=== PATIENT | female | born 1995 | race Caucasian/White ===

== ENCOUNTER 2016-11-05 21:26 | Emergency (ER) | payer BC ==
[2016-11-05 21:43] VITALS: BP 121/65
--- NOTE | 2016-11-05 21:53 | UC ---
Complaint Female HPI - HPI Summary HPI Summary: The patient comes in today for: 1. Dysuria: Onset: Since this morning. Palliative/provocative: Urinating makes it worse. Pyridium makes it better. Quality: Dysuria. Region: . Severity:03/04 Time: Constant. Associated symptoms: Previous treatment: She took PYridium which helped. Hydrocodone did not help. She will get UTI's about 2-3 times a year. Fever: No temperature taken. Hematuria: Present. LMP: Mirena IUD. Back pain: None. Last UTI: last summer. Recent antibiotics: Suspected penicillin in two months ago for strep throat. * - History Of Current Complaint Chief Complaint: UCGU Stated Complaint: POSS UTI Time Seen by Provider: 11/05/16 21:34 Hx Obtained From: Patient Hx Last Menstrual Period: 04/2017 , Mirena - Allergies/Home Medications Allergies/Adverse Reactions: Allergies Allergy/AdvReac Type Severity Reaction Status Date / Time No Known Allergies Allergy Verified 12/28/15 17:10 Home Medications: Home Medications Levonorgestrel (Iud) [Mirena IUD] 11/05/16 [History] Pyrium 11/05/16 [History] PMH/Surg Hx/FS Hx/Imm Hx Previously Healthy: Yes Endocrine History Of: Denies: Diabetes, Thyroid Disease, Hyperthyroidism, Hypothyroidism, Dyslipidemia Cardiovascular History Of: Denies: Cardiac Disorders, Hypertension, Pacemaker/ICD, Myocardial Infarction , Congestive Heart Failure, Atrial Fibrillation, Deep Vein Thrombosis, Bleeding Disorders Respiratory History Of: Denies: COPD, Asthma, Bronchitis, Pneumonia, Pulmonary Embolism GI/ History Of: Denies: Gastroesophageal Reflux, Ulcer, Gastrointestinal Bleed, Gall Bladder Disease, Kidney Stones, Diverticulitis, Renal Disease, Urosepsis Neurological History Of: Denies: TIA, CVA, Dementia, Seizures, Migraine Psychological History Of: Denies: Anxiety, Depression, Bipolar Disorder, Schizophrenia, Post Traumatic Stress Disorder Cancer History Of: Denies: Lung Cancer, Colorectal Cancer, Breast Cancer, Prostate Cancer, Cervical Cancer Other History Of: Negative For: HIV, Hepatitis B, Hepatitis C, Anticoagulant Therapy - Surgical History Surgical History: Yes Surgery Procedure, Year, and Place: right shoulder, 2008, [facility] [place]. right foot June 2014 - Family History Known Family History: Negative: Cardiac Disease, Hypertension - Social History Occupation: Employed Part-time, Student Lives: With Family Alcohol Use: Occasionally Alcohol Amount: 3 DRINKS A WEEK Substance Use Type: None Smoking Status (MU): Never Smoked Tobacco Have You Smoked in the Last Year: No - Immunization History Most Recent Influenza Vaccination: season Review of Systems Constitutional: Negative Skin: Negative Eyes: Negative ENT: Negative Respiratory: Negative Cardiovascular: Negative Gastrointestinal: Negative Genitourinary: Dysuria, Hematuria, Frequency, Urgency All Other Systems Reviewed And Are Negative: Yes Physical Exam Triage Information Reviewed: Yes Appearance: Well-Appearing, No Pain Distress, Well-Nourished Vital Signs: Initial Vital Signs Temp 98.2 F 11/05/16 21:36 Pulse 80 11/05/16 21:36 Resp 16 11/05/16 21:36 BP 121/65 11/05/16 21:36 Pulse Ox 99 11/05/16 21:36 Vital Signs Reviewed: Yes Eyes: Positive: Conjunctiva Clear. Negative: Discharge ENT: Positive: Hearing grossly normal. Negative: Pharyngeal erythema, Nasal congestion, Nasal drainage, TM bulging, TM dull, TM red, Tonsillar swelling, Tonsillar exudate Dental: Negative: Gross Decay/Caries @, Dental Fracture @ Neck: Positive: Supple, Nontender, No Lymphadenopathy. Negative: Nuchal Rigidity Respiratory: Positive: Lungs clear, No respiratory distress, No accessory muscle use. Negative: Crackles, Wheezing Cardiovascular: Positive: RRR, No Murmur Abdomen Description: Positive: Nontender, No Organomegaly, Soft. Negative: CVA Tenderness (R), CVA Tenderness (L), Distended, Guarding Musculoskeletal: Positive: Strength Intact, ROM Intact Neurological: Positive: Alert, Muscle Tone Normal Psychological: Positive: Age Appropriate Behavior, Consolable Skin: Negative: rashes, breakdown Complaint Female Dx - Course Course Of Treatment: Given Pyridium and Bactrim. - Differential Dx/Diagnosis Provider Diagnoses: UTI Discharge - Discharge Plan Condition: Stable Disposition: HOME Patient Education Materials: Urinary Tract Infection in Women (ED) Referrals: Sophie Alejandro MD [Primary Care Provider] - 1 Week (Please see your primary care provider in a week to see how well you are doing. If you get worse, please be seen sooner in the ER or through us.)
[2016-11-05] MEDS ORDERED: Phenazopyridine TAB* 100 MG PO ONE (21:57)
[2016-11-05] MEDS ORDERED: Sulfamethox/Trimethoprim DS 800/160* TAB PO ONE (21:58)
[2016-11-06 10:55] LABS: Urine Bacteria Absent (Absent); Urine Bilirubin Negative (Negative); Urine Glucose Negative (Negative); Urine Nitrite Positive (Negative)
== END 2016-11-05 22:10 | disposition home or self-care (01) ==
LOC: UCEAST 21:26
DX: N39.0 Urinary tract infection, site not specified (principal); R31.9 Hematuria, unspecified
CPT/HCPCS: 81003; 81015; 87077; 87086; 87186; 99212; A9270-GY; G0463

== ENCOUNTER 2016-11-07 19:42 | Emergency (ER) | payer BC ==
[2016-11-07] MEDS ORDERED: Ondansetron INJ* 2 MG/ML VIAL IV ONE (20:14)
[2016-11-07] MEDS ORDERED: NS 0.9% 1000 ML* 1,000 ML IV ONE (20:14)
[2016-11-07] MEDS ORDERED: Morphine INJ* 4 MG/ML 1 ML CARPUJECT IV ONE (20:14)
--- NOTE | 2016-11-07 20:29 | ED ---
GI/ HPI - HPI Summary HPI Summary: Pt here w/ progressively worsening UTI. Started as dysuria, urinary frequency, frequent urge to urinate, hematuria and midline bladder spasms Saturday (2 days ago). Went to and was tx'd w/ bactrim and pyridium. Dysuria and bladder spasm improved s/p initiating of medications. Following day (yesterday) she had frequent urge return. Today she feels a fever coming on as well as nausea and pain moving from midline pelvic area to LLQ and around to side and flank. H/o pyelonephritis and this feels similar. No known h/o stones. She is sexually active and has an IUD - no recent traumatic intercourse - denies dyspareunia and post coital bleeding. No vaginal pain, irritation, d/c. Admits she did not void after recent intercourse. Denies holding her urine and reports drinking plenty of fluids. Has had 1 pap thus far which was normal. Denies h/o ovarian cyst(s). Moving her bowels well and w/o pain. Urine cx reveals e. coli UTI however sensitivity is still pending. Last cx and sens reveals resistance to bactrim as well as cipro, levaquin, tetracycline, and ... This was sensitive to cephalosporins, augmentin and nitrofurantoin. Pt and her mom do not recall anbx she received for previous pyelonephritis. Will check records. - History of Current Complaint Chief Complaint: EDAbdPain Time Seen by Provider: 11/07/16 19:59 Stated Complaint: DX UTI/WORSENING SYMPTOMS Hx Obtained From: Patient, Family/Welfare Aide - mom Pain Intensity: 8 - Allergy/Home Medications Allergies/Adverse Reactions: Allergies Allergy/AdvReac Type Severity Reaction Status Date / Time No Known Allergies Allergy Verified 12/28/15 17:10 PMH/Surg Hx/FS Hx/Imm Hx Previously Healthy: Yes Endocrine/Hematology History: Denies: Hx Anticoagulant Therapy, Hx Diabetes, Hx Thyroid Disease, Autoimmune Disease Cardiovascular History: Denies: Hx Congestive Heart Failure, Hx Deep Vein Thrombosis, Hx Hypertension , Hx Myocardial Infarction, Hx Pacemaker/ICD, Other Cardiovascular Problems/ Disorders Respiratory History: Denies: Hx Asthma, Hx Chronic Obstructive Pulmonary Disease (COPD), Hx Lung Cancer, Hx Pneumonia, Hx Pulmonary Embolism, Other Respiratory Problems/ Disorders GI History: Denies: Hx Gall Bladder Disease, Hx Gastrointestinal Bleed, Hx Ulcer, Hx Urosepsis, Other GI Disorders History: Reports: Hx Kidney Infection - UTI, pyelonephritis Denies: Hx Kidney Stones, Hx Renal Disease Musculoskeletal History: Reports: Hx Arthritis - SHOULDERS, FEET, HIPS, Other Musculoskeletal History - LOOSE LIGAMENTS Sensory History: Denies: Hx Contacts or Glasses, Hx Hearing Aid Opthamlomology History: Denies: Hx Contacts or Glasses Neurological History: Denies: Hx Dementia, Hx Migraine, Hx Seizures, Hx Transient Ischemic Attacks (TIA), Other Neuro Impairments/Disorders Psychiatric History: Denies: Hx Anxiety, Hx Depression, Hx Panic Disorder, Hx Schizophrenia, Hx Bipolar Disorder - Surgical History Surgery Procedure, Year, and Place: right shoulder, 2008, [place]. right foot June 2014 Hx Anesthesia Reactions: No Infectious Disease History: No Infectious Disease History: Denies: Hx Clostridium Difficile, Hx Hepatitis, Hx Human Immunodeficiency Virus (HIV), Hx of Known/Suspected MRSA, Hx Shingles, Hx Tuberculosis, Hx Known/ Suspected VRE, Hx Known/Suspected VRSA, History Other Infectious Disease, Traveled Outside the [place] in Last 30 Days - Family History Known Family History: Positive: None - mom and dad are healthy - they are both adopted Negative: Cardiac Disease, Hypertension - Social History Occupation: Student - doctor of nursing practice Lives: With Family - roommate Alcohol Use: Occasionally Alcohol Amount: 3 DRINKS A WEEK Hx Substance Use: No Substance Use Type: Reports: None Hx Tobacco Use: No Smoking Status (MU): Never Smoked Tobacco Have You Smoked in the Last Year: No Review of Systems Constitutional: Other - see HPI Negative: Chest Pain Negative: Shortness Of Breath Gastrointestinal: Other - see HPI Positive: see HPI Negative: Arthralgia, Myalgia Negative: Rash Neurological: Negative Psychological: Normal All Other Systems Reviewed And Are Negative: Yes Physical Exam Triage Information Reviewed: Yes Vital Signs On Initial Exam: Initial Vitals Temp Pulse Resp BP Pulse Ox 99.7 F 105 18 95/63 100 11/07/16 19:49 11/07/16 19:49 11/07/16 19:49 11/07/16 19:49 11/07/16 19:49 Vital Signs Reviewed: Yes Appearance: Positive: Well-Appearing, Well-Nourished, Pain Distress - lying on bed in position - she is able to sit up and report sx, answer questions but states she's hurting Skin: Positive: Warm, Dry - no erythema, no ecchymosis, no lesions over affected area Head/Face: Positive: Normal Head/Face Inspection Eyes: Positive: Normal, EOMI, Conjunctiva Clear - anicteric sclera ENT: Positive: Hearing grossly normal, Pharynx normal - mucosa moist Neck: Positive: Supple Respiratory/Lung Sounds: Positive: Clear to Auscultation, Breath Sounds Present. Negative: Rales, Rhonchi, Wheezes Cardiovascular: Positive: Normal, RRR, S1, S2. Negative: Murmur, Rub Abdomen Description: Positive: No Organomegaly, Soft, CVA Tenderness (L), Other : - preputebal region, LLQ, Lt side TTP - no rebounding. Negative: CVA Tenderness (R) - NTTP however percussion here radiates pain to Lt flank Bowel Sounds: Positive: Present Musculoskeletal: Positive: Normal, Strength/ROM Intact Neurological: Positive: Normal, Sensory/Motor Intact, Alert, Oriented to Person Place, Time, CN Intact II-III Psychiatric: Positive: Normal Diagnostics - Vital Signs Vital Signs Temp Pulse Resp BP Pulse Ox 11/07/16 19:49 99.7 F 105 18 95/63 100 - Laboratory Result Diagrams: 11/07/16 20:55 11/07/16 20:55 Lab Statement: Any lab studies that have been ordered have been reviewed, and results considered in the medical decision making process. Re-Evaluation - Re-Evaluation First Eval Change: Improved - worse w/ morphine - only had 2mg. Then sharp pain better after toradol - back to baseline. Will provide percocet PO for home use as has worked well in the past GIGU Course/Dx - Course Course Of Treatment: Healthy 21 y.o. female presents w/ Lt flank pain today following 2 day h/o e. coli UTI (was seen and tx started 2 days ago through ) . SHe has been taking bactrim which was resistant on last urine cx. She has a h/ o pyelonephritis which appears to be the case again today per U/S. Pt provided w / pain meds, IVF, and ceftriaxone. She will be d/c'd w/ pain meds and pending anbx tomorrow as senstivity should be back by then. She and mom will monitor for s/sx of worsening infection and return to ED if this occurs. Also discussed possible consult w/ urology in the future to asses recurrent UTI's and pyelonephritis w/ multiple resistant anbx. Pt and mom agree w/ plan. - Diagnoses Provider Diagnoses: Pyelonephritis Discharge - Discharge Plan Condition: Stable Disposition: HOME Prescriptions: oxyCODONE/Acetamin 5/325 MG* [Percocet 5/325 TAB*] 1 tab PO Q6H PRN #15 tab MDD 4 PRN Reason: Pain Patient Education Materials: Acute Pyelonephritis (ED) Forms: *School Release Referrals: Sophie Alejandro MD [Primary Care Provider] - Additional Instructions: Drink plenty of water Take percocet and ibuprofen pain medications as directed Call tomorrow for appropriate antibiotic - if sensitivity has not returned, an interim antibiotic may be ordered PO or you may return to ED for another dose of IV ceftriaxone *If you develop fever, chills, vomiting, worsening of pain, reduced urine output or yaritza hematuria, return to ED
--- NOTE | 2016-11-07 20:47 | RAD ---
INDICATION: Urinary tract infection, possible pyelonephritis. COMPARISON: Comparison is made with a prior renal ultrasound from March 19, 2013. TECHNIQUE: Multiple real-time images of the left kidney were obtained. FINDINGS: The left kidney is normal in size and shape. The kidney measured 9.2 x 5.6 x 4.8 cm. No focal abnormality or hydronephrosis is seen. The medullary tissue is mildly hypoechoic which is a nonspecific finding although would be consistent with the patient's history of pyelonephritis. IMPRESSION: POSSIBLE PYELONEPHRITIS, NO EVIDENCE FOR HYDRONEPHROSIS.
[2016-11-07 21:04] LABS: Hematocrit 39 % (35-47); Mean Corpuscular HGB Conc 33 g/dl (31-36); Mean Corpuscular Hemoglobin 30 pg (27-31); Mean Corpuscular Volume 92 fL (80-97); Mean Platelet Volume 8 um3 (7.4-10.4); Red Blood Count 4.31 10^6/ul (4.0-5.4); Red Cell Distribution Width 14 % (10.5-15); White Blood Count 12.2 10^3/ul (3.5-10.8)
[2016-11-07] MEDS ORDERED: cefTRIAXone(*) 1 GM in NS 0.9% 50 ML* 50 ML IVPB ONE (21:20)
[2016-11-07 21:22] LABS: ALT 12 U/L (7-52); AST 17 U/L (13-39); Albumin 4.5 g/dL (3.2-5.2); Alkaline Phosphatase 60 U/L (34-104); Anion Gap 7 mmol/L (2-11); BUN/Creatinine Ratio 8.9 (8-20); Blood Urea Nitrogen 9 mg/dL (6-24); C Reactive Protein 12.94 mg/L (< 5.00); CO2 Carbon Dioxide 27 mmol/L (22-32); Calcium 9.8 mg/dL (8.6-10.3); Chloride 101 mmol/L (101-111); EGFR African American 88.1 (>60); EGFR Non-African American 68.5 (>60); Globulin 2.9 g/dL (2-4); Glucose 93 mg/dL (70-100); Lipase < 10 U/L (11.0-82.0); Potassium 3.7 mmol/L (3.5-5.0); Sodium 135 mmol/L (133-145); Total Protein 7.4 g/dL (6.4-8.9)
[2016-11-07] MEDS ORDERED: Ketorolac INJ* 30 MG/ML 1 ML VIAL IV PUSH ONE (21:23)
[2016-11-07] MEDS ORDERED: oxyCODONE/Acetamin 5/325 MG* TAB PO ONE ×2 (22:30→22:31)
[2016-11-07 23:35] VITALS: BP 99/63
--- NOTE | 2016-11-08 11:53 | PN ---
Progress Note - Progress Note Note: 11/08/16 @11:45. mother called regrding urine culture. reviewed urine culture and is positive for Cipro. pt was on bactrim which is resistant. Rx: Cipro 500mg #20 one po bid x 10 days.
== END 2016-11-07 23:33 | disposition home or self-care (01) ==
LOC: ED 19:42
DX: N12 Tubulo-interstitial nephritis, not specified as acute or chronic (principal); N39.0 Urinary tract infection, site not specified
CPT/HCPCS: 36415; 76775; 80053; 83605; 83690; 85025; 86140; 96374; 96375; 99283; A9270-GY; J0696; J1885; J2270; J2405